=== PATIENT | female | born 1975 | race Caucasian/White ===

== ENCOUNTER 2024-04-24 07:15 | Day surgery (SDC) | payer OTHER ==
[~2024-04-24] VITALS: Ht 160 cm; Wt 81.6 kg
[2024-04-24 08:11] LABS: HCG,QUAL RESULT NEGATIVE (NEGATIVE)
[2024-04-24] MEDS ORDERED: ceFAZolin SODIUM 2 GM in D5W 50 ML IV ONE (08:15)
[2024-04-24] MEDS ORDERED: CEFAZOLIN 2 GM IVPB PREMIX 50 ML IV ONE (08:15)
[2024-04-24] MEDS ORDERED: PROPOFOL 200MG/ 20ML VIAL (DIPRIVAN) IV ONE (09:11)
[2024-04-24] MEDS ORDERED: NS IRRIG SOLN 1000 ML IR ONE (09:11)
[2024-04-24] MEDS ORDERED: ROCURONIUM BROMIDE 10 MG/ML (ZEMURON) ONE (09:11)
[2024-04-24] MEDS ORDERED: SEVOFLURANE 15 MIN GAS INH ONE (09:11)
[2024-04-24] MEDS ORDERED: DEXAMETHASONE SOD PHOSPHATE 4 MG/ML VIAL ONE (09:11)
[2024-04-24] MEDS ORDERED: ONDANSETRON HCL 4 MG/2 ML VIAL ONE (09:11)
[2024-04-24] MEDS ORDERED: LR 1,000 ML IV.SOLN IV ONE (09:11)
[2024-04-24] MEDS ORDERED: fentaNYL CITRATE/PF 100 MCG/2 ML AMP ONE (09:11)
[2024-04-24] MEDS ORDERED: MIDAZOLAM HCL 2 MG/2 ML VIAL (VERSED) ONE (09:11)
[2024-04-24] MEDS ORDERED: WATER FOR IRRIGATION,STERILE 1,000 ML IRRIG.SOLN IR ONE (09:11)
[2024-04-24] MEDS ORDERED: SUCCINYLCHOLINE CHLORIDE 20 MG/ML(QUELICIN) ONE (09:11)
[2024-04-24] MEDS ORDERED: NEOSTIGMINE METHYLSULFATE 1 MG/ML, 10 ML VIAL ONE (09:11)
[2024-04-24] MEDS ORDERED: LIDOCAINE/EPI 1% 1:100000 20 ML VIAL ONE (09:11)
[2024-04-24] MEDS ORDERED: GLYCOPYRROLATE 0.2 MG/ML VIAL ONE (09:11)
[2024-04-24] MEDS ORDERED: METOCLOPRAMIDE HCL 10 MG/2 ML VIAL IVP PRN (09:45)
[2024-04-24] MEDS ORDERED: HYDROmorphone 1 MG/ML INJ. CARTRIDGE IVP PRN (09:45)
[2024-04-24] MEDS ORDERED: ONDANSETRON HCL 4 MG/2 ML VIAL IVP PRN (09:45)
[2024-04-24] MEDS ORDERED: ACETAMINOPHEN I.V. 1000 MG 100 ML IV ONE ×2 (09:45→10:55)
[2024-04-24] MEDS ORDERED: KETOROLAC TROMETHAMINE 30 MG VIAL IVP PRN (09:45)
[2024-04-24] MEDS: HYDROmorphone 2 MG/ML VIAL ONE ×2 (10:17→10:51)
[2024-04-24] MEDS: KETOROLAC TROMETHAMINE 30 MG VIAL ONE (11:23)
[2024-04-24] MEDS: ONDANSETRON HCL 4 MG/2 ML VIAL ONE (12:18)
[2024-04-24 13:22] VITALS: O2SAT 99
[2024-04-24 13:34] VITALS: BP_SYST 129; PULSE 78; RESP 18
== END 2024-04-24 13:05 | disposition home or self-care (01) ==
LOC: SDS 07:15 → SMU 07:15 → SDS 13:05
PROVIDERS: ATTEND Surgery
DX: K80.10 Calculus of gallbladder with chronic cholecystitis without obstruction (principal); K21.9 Gastro-esophageal reflux disease without esophagitis; E66.01 Morbid (severe) obesity due to excess calories; Z68.31 Body mass index [BMI] 31.0-31.9, adult; Z90.49 Acquired absence of other specified parts of digestive tract; Z79.899 Other long term (current) drug therapy
CPT/HCPCS: 71046; 47562; 84703; 87081; 88304; 93005; J0690; J1100; J3490; J1885; J2250; J2405; J2704; J0330; J3010; J1171; J7120; C1727; J0131; J2710; J7060; Q9967